=== PATIENT | female | born 1975 | race Caucasian/White ===

== ENCOUNTER 2020-08-28 20:47 | Emergency (ER) | payer OTHER, BC ==
[~2020-08-28] VITALS: Ht 160 cm; Wt 104.3 kg
[2020-08-28 21:57] VITALS: BP 143/98
== END 2020-08-28 21:58 | disposition home or self-care (01) ==
LOC: ER 20:47
DX: S50.01XA Contusion of right elbow, initial encounter (principal); M25.511 Pain in right shoulder; M25.531 Pain in right wrist; Z88.5 Allergy status to narcotic agent; W01.0XXA Fall on same level from slipping, tripping and stumbling without subsequent striking against object, initial encounter; Y93.89 Activity, other specified; Y92.89 Other specified places as the place of occurrence of the external cause; Y99.0 Civilian activity done for income or pay